=== PATIENT | male | born 1985 | race Caucasian/White ===

== ENCOUNTER 2018-06-29 14:21 | Emergency (ER) | payer OTHER ==
[~2018-06-29] VITALS: Wt 80.2 kg
[2018-06-29 14:23] VITALS: BP 126/65; PULSE 71; RESP 19
[2018-06-29] MEDS ORDERED: FLUORESCEIN STRIP RIGHT EYE ONE (15:30)
[2018-06-29] MEDS ORDERED: OPHTHALMIC IRRIG SOLUTION 120 ML RIGHT EYE ONE (15:30)
[2018-06-29] MEDS ORDERED: TETRACAINE 0.5% 4 ML OPH RIGHT EYE ONE (15:30)
[2018-06-29] MEDS ORDERED: ERYT1OIN6 RIGHT EYE (16:09)
[2018-06-29] MEDS ORDERED: ACET1TAB40 PO (16:09)
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
== END 2018-06-29 16:43 | disposition home or self-care (01) ==
LOC: FTE 14:21
DX: H57.89 Other specified disorders of eye and adnexa (principal)
CPT/HCPCS: Z7502; Z7610; 99283

== ENCOUNTER 2018-11-10 18:11 | Emergency (ER) | payer OTHER ==
[~2018-11-10] VITALS: Ht 170.2 cm; Wt 81.5 kg
[~2018-11-10 18:11] MED LIST: ACET1TAB40 PO; ERYT1OIN6 RIGHT EYE
[2018-11-10 18:14] VITALS: Ht 170.2 cm; Wt 81.5 kg
[2018-11-10] MEDS ORDERED: HYDROmorphONE 2 MG/ML SYG IM STA (19:11)
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
[2018-11-10 21:37] VITALS: BP 128/93; PULSE 80; RESP 16
== END 2018-11-10 21:38 | disposition home or self-care (01) ==
LOC: FTE 18:11
DX: M54.42 Lumbago with sciatica, left side (principal); M54.41 Lumbago with sciatica, right side
CPT/HCPCS: 72131; 96372; J1170; Z7502

== ENCOUNTER 2018-12-21 14:35 | Emergency (ER) | payer OTHER ==
[~2018-12-21] VITALS: Wt 81.0 kg
[2018-12-21] MEDS ORDERED: SOD CHLORIDE 0.9% 1,000 ML IV STA (15:15)
[2018-12-21] MEDS ORDERED: morphine 4 MG/ML VIAL IV STA (15:15)
[2018-12-21] MEDS ORDERED: ONDANSETRON 4 MG INJ IV STA (15:15)
[2018-12-21 19:23] VITALS: BP 136/74; PULSE 80; RESP 16
--- NOTE | 2018-12-21 19:23 | ERD ---
ER Documentation Chief Complaint Chief Complaint URINE AND BOWEL INCONTINENCE SENT CLINIC FOR MRI HPI Patient is a 33-year-old male with back pain and history of previous fusion who presents with need for evaluation. The patient was sent by the [facility] for evaluation for cauda equina syndrome. The patient has had back pain since last November. Over the past 3 weeks he has had bladder and bowel incontinence. The patient was seen in the clinic today and sent to the ER to rule out cauda equina syndrome. The patient is able to ambulate and walks with a cane. He complains of left leg numbness. He also feels dizziness and blurry vision. Upon review of old medical records this is the patient's third visit to the ER since June 29. He does have a primary doctor and his neurosurgeon was Dr. Kebede from [facility]. ROS All systems reviewed and are negative except as per history of present illness. Medications Home Meds Discontinued Scripts Acetaminophen with Codeine (Acetaminophen-Cod #3 Tablet) 1 Each Tablet, 1 TAB PO Q6H PRN for PAIN, #7 TAB Prov:ELIEZER SANTACRUZ MD 06/29/18 Erythromycin Base (Erythromycin) 1 Gm Oint...g., 1 APPLIC RIGHT EYE QID for 7 Days Prov:ELIEZER SANTACRUZ MD 06/29/18 Allergies Allergies: Coded Allergies: No Known Allergy (Unverified , 12/21/18) PMhx/Soc History of Surgery: Yes (Back fusion SX) Anesthesia Reaction: No Hx Alcohol Use: No Hx Substance Use: No Hx Tobacco Use: No Smoking Status: Never smoker FmHx Family History: diabetes Physical Exam Vitals Vital Signs Date Temp Pulse Resp B/P (MAP) Pulse Ox O2 O2 Flow FiO2 Time Delivery Rate 12/21/18 98.0 80 16 136/74 97 Room Air 19:23 (94) 12/21/18 98.0 90 16 141/96 97 Room Air 18:12 (111) 12/21/18 98.0 70 18 111/89 99 Room Air 17:28 (96) 12/21/18 98.0 92 18 132/98 99 Room Air 16:18 (109) 12/21/18 98.0 73 18 132/78 99 Room Air 15:42 (96) 12/21/18 98.0 70 18 134/74 99 15:01 (94) Physical Exam Const: No acute distress Head: Atraumatic Eyes: Normal Conjunctiva ENT: Normal External Ears, Nose and Mouth. Neck: Full range of motion. No meningismus. Resp: Clear to auscultation bilaterally Cardio: Regular rate and rhythm, no murmurs Abd: Soft, non tender, non distended. Normal bowel sounds Skin: No petechiae or rashes Back: No midline or flank tenderness Ext: No cyanosis, or edema Neur: Awake and alert, numbness to the left leg compared to the right, able to lift his left leg off the bed, able to lift his right leg off the bed, no incontinence here in the emergency department. Psych: Normal Mood and Affect Result Diagram: 12/21/18 1540 12/21/18 1540 Results 24 hrs Laboratory Tests Test 12/21/18 15:40 White Blood Count 7.0 10^3/ul Red Blood Count 5.32 10^6/ul Hemoglobin 16.9 g/dl Hematocrit 46.1 % Mean Corpuscular Volume 86.7 fl Mean Corpuscular Hemoglobin 31.8 pg Mean Corpuscular Hemoglobin Concent 36.7 g/dl Red Cell Distribution Width 12.3 % Platelet Count 231 10^3/UL Mean Platelet Volume 10.2 fl Immature Granulocytes % 0.400 % Neutrophils % 54.5 % Lymphocytes % 36.7 % Monocytes % 6.1 % Eosinophils % 1.4 % Basophils % 0.9 % Nucleated Red Blood Cells % 0.0 /100WBC Immature Granulocytes # 0.030 10^3/ul Neutrophils # 3.8 10^3/ul Lymphocytes # 2.6 10^3/ul Monocytes # 0.4 10^3/ul Eosinophils # 0.1 10^3/ul Basophils # 0.1 10^3/ul Nucleated Red Blood Cells # 0.0 10^3/ul Urine Color STRAW Urine Clarity CLEAR Urine pH 6.0 Urine Specific [place] 1.005 Urine Ketones NEGATIVE mg/dL Urine Nitrite NEGATIVE mg/dL Urine Bilirubin NEGATIVE mg/dL Urine Urobilinogen NEGATIVE mg/dL Urine Leukocyte Esterase NEGATIVE David/ul Urine Hemoglobin NEGATIVE mg/dL Urine Glucose NEGATIVE mg/dL Urine Total Protein NEGATIVE mg/dl Sodium Level 139 mmol/L Potassium Level 4.7 mmol/L Chloride Level 100 mmol/L Carbon Dioxide Level 28 mmol/L Anion Gap 11 Blood Urea Nitrogen 9 mg/dl Creatinine 0.70 mg/dl Est Glomerular Filtrat Rate mL/min > 60 mL/min Glucose Level 96 mg/dl Calcium Level 9.8 mg/dl Current Medications Medications Dose Sig/Jesús Start Time Status Last (Trade) Ordered Route PRN Stop Time Admin Dose Reason Admin Sodium 1,000 ml @ Q1H STAT 12/21/18 DC 12/21/18 Chloride 1,000 mls/hr IV 15:15 15:36 12/21/18 16:14 Morphine 4 mg ONCE STAT 12/21/18 DC 12/21/18 Sulfate IV 15:15 15:36 (morphine) 12/21/18 15:17 Ondansetron 4 mg ONCE STAT 12/21/18 DC 12/21/18 HCl (Zofran IV 15:15 15:36 Inj) 12/21/18 15:17 Procedures/MDM MRI of the lumbar spine read by radiology. Patient is a 33-year-old male with acute on chronic back pain. He has a history of previous fusion. I did do a lumbar spine MRI which showed no sign of cauda equina syndrome, epidural abscess, or epidural hematoma. I do not believe the patient requires further work-up or admission to the hospital at this time. Laboratory studies are normal. The patient will be discharged but will need to follow-up closely with his neurosurgeon within 1 to 2 days. He can return sooner for any worsening symptoms. Departure Diagnosis: Primary Impression: Back pain Back pain location: low back pain Chronicity: acute Back pain laterality: unspecified Sciatica presence: without sciatica Qualified Codes: M54.5 - Low back pain Additional Impression: Dizziness Condition: Fair Patient Instructions: Back Pain (Acute Or Chronic), Dizziness, Unk Cause Referrals: Your Neurosurgeon Dr. Metcalf Additional Instructions: Specialist:Usted tiene tali condicin mdica que requiere que cherie a un especialista dentro de los prximos 1-2 pierre.POR FAVOR,CON [place] SEGUIMIENTO DE PRIMARIA PHSICIAN refferal. SI USTED NO TIENE UN MDICO GENERAL Y / O USTED NO PUEDE PAGAR marlys a un mdico,los siguientes casas RECURSOS sido suministrado a usted. ES [place] RESPONSABILIDAD PARA SER VISTOS POR EL ESPECIALISTA: AUGUSTINA THOMAS MD Dec 21, 2018 19:23
== END 2018-12-21 19:24 | disposition home or self-care (01) ==
LOC: E/R 14:35
DX: M54.5 Low back pain (principal); R42 Dizziness and giddiness
CPT/HCPCS: 36415; 72158; 80048; 81003; 85025; 96374; 96375; J2270; J2405; J7030; Z7502